=== PATIENT | female | born 1960 | race Two or more races ===

== ENCOUNTER → 2019-05-27 | Outpatient (CLI) | payer SELFPAY ==
[~2019-05-27] MED LIST: ASPI81CH; ATOR20 PO; BENADRYL25 MG PO; CALCAVITDA PO; CLOBET30L TOP; CYCL10 PO; HYDACE5 PO; IBUHYD PO; IBUP600 PO; IBUP800 PO; LISI5 PO; LOSA50 PO; METF500 PO; MULVITMIND PO; NAPR500 PO; NITR100CA PO; ONDA4 PO; OXYACE5T PO; PROM25 PO; Prednisone20 MG PO; RXHYDMOR2 PO; Zithromax250 MG PO
== END | disposition home or self-care (01) ==
LOC: LAB UCHC 16:00 → LAB SHORT 16:00
DX: R82.998 Other abnormal findings in urine (principal)
CPT/HCPCS: 87086

== ENCOUNTER 2020-12-07 15:03 | Inpatient (IN) | payer SELFPAY ==
[~2020-12-07] VITALS: Ht 157.5 cm; Wt 88.2 kg
[2020-12-07] MEDS ORDERED: ATOR20 PO (15:43)
[2020-12-07 17:28] LABS: Alanine Aminotransfer (ALT/SGP 32 U/L (12-78); Albumin, Blood 3.1 g/dL (3.4-5.0); Albumin/Globulin Ratio 0.7 (0.8-1.8); Alk Phos 81 U/L (50-136); Anion Gap 6 mmol/L (6-16); Aspartate Aminotrans (AST/SGOT 44 U/L (12-37); Bilirubin, Total 0.4 mg/dL (0.1-1.0); Blood Urea Nitrogen 9 mg/dL (8-24); Bun/Creatinine Ratio 12.8 (12.0-20.0); CO2, Blood 26 mmol/L (21-32); Calcium, Blood 7.9 mg/dL (8.5-10.1); Chloride, Blood 102 mmol/L (98-108); Globulin, Blood 4.2 g/dL (2.2-4.0); Glomerular Filtration Rate >60 (60-); Glucose, Blood 120 mg/dL (70-99); Potassium, Blood 3.5 mmol/L (3.5-5.5); Sodium, Blood 134 mmol/L (136-145); Total Protein, Blood 7.3 g/dL (6.4-8.2)
[2020-12-07 17:47] LABS: BASOPHILS PERCENT AUTO 0 % (0-2); EOSINOPHILS PERCENT AUTO 0 % (0-6); Hematocrit 37.8 % (33.0-51.0); Hemoglobin 12.6 g/dL (11.5-16.0); IMMATURE GRAN ABSOLUTE AUTO 0.01 K/mm3 (0.00-0.10); IMMATURE GRAN PERCENT AUTO 0 % (0-1); LYMPHOCYTES ABSOLUTE AUTO 0.63 K/mm3 (0.84-5.20); LYMPHOCYTES PERCENT AUTO 23 % (21-46); MONOCYTES ABSOLUTE AUTO 0.18 K/mm3 (0.16-1.47); MONOCYTES PERCENT AUTO 7 % (4-13); Mean Corpuscular HGB 26.5 pg (26.0-34.0); Mean Corpuscular HGB Conc 33.3 g/dL (31.5-36.5); Mean Corpuscular Volume 79 fL (80-100); Mean Platelet Volume 10.8 fL (9.1-12.4); NEUTROPHILS ABSOLUTE AUTO 1.89 K/mm3 (1.96-9.15); NEUTROPHILS PERCENT AUTO 70 % (41-73); Platelet Count 111 K/mm3 (150-400); RDW Coefficient Variation 13.2 % (11.7-14.2); RDW Standard Deviation 38.1 fL (35.1-46.3); Red Blood Cell Count 4.76 M/mm3 (3.80-5.20); White Blood Cell Count 2.71 K/mm3 (4.00-11.30)
[2020-12-07] MEDS ORDERED: ATOR40TA PO (18:23)
--- NOTE | 2020-12-08 04:00 | NUR ---
SHIFT SUMMARY A/OX4, IND IN ROOM. CURRENTLY ON 2.5L WITH SATS GREATER THAN 92. FIRST DOSE OF REMDESIVIR GIVEN. C/O MILD MUSCLE ACHES AND INTERMITTENT LOOSE STOOLS. TELE SR IN THE 60S. VSS, NO ACUTE CHANGES AT THIS TIME. BED IN LOWEST POSITION WITH CALL LIGHT IN REACH. WILL CONTINUE TO MONITOR AND REPORT TO ONCOMING RN.
[2020-12-08 05:00] LABS: BASOPHILS ABSOLUTE AUTO 0.01 K/mm3 (0.00-0.23); BASOPHILS PERCENT AUTO 1 % (0-2); EOSINOPHILS PERCENT AUTO 0 % (0-6); Hematocrit 45.4 % (33.0-51.0); Hemoglobin 14.7 g/dL (11.5-16.0); IMMATURE GRAN ABSOLUTE AUTO 0.01 K/mm3 (0.00-0.10); IMMATURE GRAN PERCENT AUTO 1 % (0-1); LYMPHOCYTES ABSOLUTE AUTO 0.74 K/mm3 (0.84-5.20); LYMPHOCYTES PERCENT AUTO 38 % (21-46); MONOCYTES PERCENT AUTO 5 % (4-13); Mean Corpuscular HGB 26.4 pg (26.0-34.0); Mean Corpuscular HGB Conc 32.4 g/dL (31.5-36.5); Mean Corpuscular Volume 82 fL (80-100); Mean Platelet Volume 10.6 fL (9.1-12.4); NEUTROPHILS ABSOLUTE AUTO 1.11 K/mm3 (1.96-9.15); NEUTROPHILS PERCENT AUTO 56 % (41-73); Platelet Count 121 K/mm3 (150-400); RDW Coefficient Variation 13.2 % (11.7-14.2); RDW Standard Deviation 39.9 fL (35.1-46.3); Red Blood Cell Count 5.56 M/mm3 (3.80-5.20); White Blood Cell Count 1.97 K/mm3 (4.00-11.30)
[2020-12-08 05:18] LABS: Anion Gap 8 mmol/L (6-16); Blood Urea Nitrogen 13 mg/dL (8-24); Bun/Creatinine Ratio 15.3 (12.0-20.0); CO2, Blood 28 mmol/L (21-32); Calcium, Blood 8.4 mg/dL (8.5-10.1); Chloride, Blood 102 mmol/L (98-108); Creatinine, Blood 0.85 mg/dL (0.40-1.00); Glomerular Filtration Rate >60 (60-); Glucose, Blood 173 mg/dL (70-99); Potassium, Blood 3.5 mmol/L (3.5-5.5); Sodium, Blood 138 mmol/L (136-145)
--- NOTE | 2020-12-08 17:04 | NUR ---
SHIFT SUMMARY PT IS AOX4. PT DENIES PAIN, N/V, SOB. PT STATES SHE FEELS MUCH BETTER THIS SHIFT AND IS HOPING TO RETURN HOME SOON. PT IS INDEPENDENT IN ROOM. PT TELE IS NSR IN THE 60S. PT HAS A GOOD APPETITE. NO PROCEDURES DONE THIS SHIFT. PT DID NOT HAVE VISITORS PER PROTOCOL. PT IS IN BED, LOW POSITION, CALL LIGHT IN REACH.
--- NOTE | 2020-12-09 06:05 | NUR ---
SHIFT SUMMARY S/P COVID19, A/O X4, VSS, PT REPORTS MILD SOB BUT ALSO THAT IT HAS IMPROVED SIGNIFICANTLY, PT STILL REQUIRING 2L VS NC IN WHICH SHE IS RA @ BASELINE, INDEPENDENT IN ROOM. NO ACUTE EVENTS THIS SHIFT. CALL LIGHT IN REACH, WILL CTM AND REPORT TO DAY RN.
[2020-12-09 07:47] LABS: Hematocrit 41.5 % (33.0-51.0); Hemoglobin 13.7 g/dL (11.5-16.0); Mean Corpuscular HGB 26.4 pg (26.0-34.0); Mean Corpuscular Volume 80 fL (80-100); Mean Platelet Volume 11.2 fL (9.1-12.4); Platelet Count 159 K/mm3 (150-400); RDW Coefficient Variation 13.3 % (11.7-14.2); Red Blood Cell Count 5.18 M/mm3 (3.80-5.20); White Blood Cell Count 6.74 K/mm3 (4.00-11.30)
[2020-12-09 07:59] LABS: Anion Gap 7 mmol/L (6-16); Blood Urea Nitrogen 20 mg/dL (8-24); Bun/Creatinine Ratio 27.2 (12.0-20.0); CO2, Blood 27 mmol/L (21-32); Calcium, Blood 8.6 mg/dL (8.5-10.1); Chloride, Blood 103 mmol/L (98-108); Creatinine, Blood 0.74 mg/dL (0.40-1.00); Glomerular Filtration Rate >60 (60-); Glucose, Blood 153 mg/dL (70-99); Potassium, Blood 4.1 mmol/L (3.5-5.5); Sodium, Blood 137 mmol/L (136-145)
--- NOTE | 2020-12-09 18:39 | NUR ---
SHIFT SUMMARY: NO ACUTE EVENTS TO REPORT THIS SHIFT. PT COVID POSITIVE; PT REPORTS SOB, IMPROVING; O2 @ 2L - ROOM AIR AT HOME. IV STEROIDS & REMDESIVIR CONTINUING. WCTM.
[2020-12-10 05:10] LABS: Hematocrit 41.8 % (33.0-51.0); Hemoglobin 13.7 g/dL (11.5-16.0); Mean Corpuscular HGB 26.4 pg (26.0-34.0); Mean Corpuscular HGB Conc 32.8 g/dL (31.5-36.5); Mean Corpuscular Volume 81 fL (80-100); Mean Platelet Volume 10.5 fL (9.1-12.4); Platelet Count 185 K/mm3 (150-400); RDW Coefficient Variation 13.2 % (11.7-14.2); RDW Standard Deviation 38.7 fL (35.1-46.3); Red Blood Cell Count 5.19 M/mm3 (3.80-5.20); White Blood Cell Count 5.36 K/mm3 (4.00-11.30)
[2020-12-10 05:36] LABS: Alanine Aminotransfer (ALT/SGP 32 U/L (12-78); Albumin/Globulin Ratio 0.7 (0.8-1.8); Alk Phos 83 U/L (50-136); Anion Gap 7 mmol/L (6-16); Aspartate Aminotrans (AST/SGOT 31 U/L (12-37); Bilirubin, Total 0.4 mg/dL (0.1-1.0); Blood Urea Nitrogen 18 mg/dL (8-24); Bun/Creatinine Ratio 30.2 (12.0-20.0); CO2, Blood 29 mmol/L (21-32); Calcium, Blood 8.6 mg/dL (8.5-10.1); Chloride, Blood 103 mmol/L (98-108); Globulin, Blood 4.2 g/dL (2.2-4.0); Glomerular Filtration Rate >60 (60-); Glucose, Blood 136 mg/dL (70-99); Potassium, Blood 3.8 mmol/L (3.5-5.5); Sodium, Blood 139 mmol/L (136-145); Total Protein, Blood 7.2 g/dL (6.4-8.2)
--- NOTE | 2020-12-10 05:54 | NUR ---
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 INDEPENDENT IN ROOM. DENIES PAIN, NAUSEA. PT'S OXYGEN NEEDS INCREASED FROM 2L TO 4L. PT HAD BEEN 88 TO 89% ON 2L O2. PT'S HOB RAISED AND INSTRUCTED TO TAKES STEADY SLOW DEEP BREATHES. PT COUGHS EACH TIME WITH TAKING DEEP BREATHES. CURRENTLY ON 4L O2 VIA NC SATTING IN THE LOW 90'S. DR. FLAHERTY MADE AWARE AND ORDERED CONTINUOUS PULSE OX. CALL LIGHT WITHIN, WILL CONTINUE TO MONITOR.
--- NOTE | 2020-12-10 19:11 | NUR ---
SHIFT SUMMARY: NO ACUTE EVENTS TO REPORT THIS SHIFT. PT A&O; CALM AND COOPERATIVE WITH CARE. O2 @ 4L; ROOM AIR AT HOME; PT ENCOURAGED TO LIE PRONE TO EASE WOB. NO C/O PAIN THIS SHIFT. STEROIDS & REMDESEVIR CONTINUING. WCTM.
--- NOTE | 2020-12-10 22:54 | NUR ---
INCREASE O2 NEEDS PT SUSTAINS AROUND 85% ON 4L O2 VIA NC. THIS RN INCREASED O2 TO 6 LITERS WHICH BROUGHT PT BACK UP TO 89 TO 90% PT EDUCATED TO LAY ON ON HER STOMACH-PRONE TO HELP HER BREATHE BETTER. CALL LIGHT WITHIN REACH, CONT PULSE [address] WILL CONTINUE TO MONITOR.
--- NOTE | 2020-12-11 04:28 | NUR ---
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 INCREASED FROM 4 TO 6L O2 OVERNIGHT. PT CURRENTLY SATTING AROUND 95% AND DESATS TO 89% TO 90% WITH AMBULATION. CONTINOUS PULSE OX IN PLACE. VITALS ARE STABLE. DENIES PAIN. SLEPT WELL TONIGHT. CALL LIGHT SUMAYA GAMBLE, WILL CONTINUE TO MONITOR.
[2020-12-11 05:02] LABS: Hematocrit 42.7 % (33.0-51.0); Hemoglobin 13.7 g/dL (11.5-16.0); Mean Corpuscular HGB 26.2 pg (26.0-34.0); Mean Corpuscular HGB Conc 32.1 g/dL (31.5-36.5); Mean Corpuscular Volume 82 fL (80-100); Mean Platelet Volume 11.4 fL (9.1-12.4); Platelet Count 208 K/mm3 (150-400); RDW Coefficient Variation 13.1 % (11.7-14.2); Red Blood Cell Count 5.22 M/mm3 (3.80-5.20); White Blood Cell Count 5.46 K/mm3 (4.00-11.30)
[2020-12-11 05:25] LABS: Alanine Aminotransfer (ALT/SGP 32 U/L (12-78); Albumin, Blood 2.9 g/dL (3.4-5.0); Albumin/Globulin Ratio 0.7 (0.8-1.8); Alk Phos 85 U/L (50-136); Anion Gap 5 mmol/L (6-16); Aspartate Aminotrans (AST/SGOT 30 U/L (12-37); Bilirubin, Total 0.5 mg/dL (0.1-1.0); Blood Urea Nitrogen 18 mg/dL (8-24); Bun/Creatinine Ratio 30.7 (12.0-20.0); CO2, Blood 30 mmol/L (21-32); Calcium, Blood 8.5 mg/dL (8.5-10.1); Chloride, Blood 101 mmol/L (98-108); Creatinine, Blood 0.59 mg/dL (0.40-1.00); Globulin, Blood 4.3 g/dL (2.2-4.0); Glomerular Filtration Rate >60 (60-); Glucose, Blood 130 mg/dL (70-99); Potassium, Blood 4.3 mmol/L (3.5-5.5); Sodium, Blood 136 mmol/L (136-145); Total Protein, Blood 7.2 g/dL (6.4-8.2)
--- NOTE | 2020-12-11 17:45 | NUR ---
RN SHIFT NOTE: PT HAS BEEN A/O X 3. SATS HAVE REMAINED ABOVE 95% EXCEPT WHEN UP TO RESTROOM. DESATS TO THE LOW 90'S. IND IN ROOM AT THIS TIME. DENIES N/V/P/SOB. REPORTS LOSS OF SMELL. COUGH HAS BEEN MINIMAL. NO ACUTE CHANGES THIS SHIFT.
--- NOTE | 2020-12-12 05:10 | NUR ---
PHYSICIAN CONTACT PT REPORTS 3/10 SUBSTERNAL CHEST PAIN THAT HAS BEEN ONGOING FOR THE LAST 3 DAYS. DISH WASHER PROVIDER NOTIFIED. NEW ORDERS FOR TROPONIN, TELE AND EKG. EKG COMPLETED, NSR AT 60. WILL CONTINUE TO MONITOR.
--- NOTE | 2020-12-12 06:43 | NUR ---
SHIFT SUMMARY A/OX3, CAN BE FORGETFUL AT TIMES. PT FOUND OUTSIDE ROOM IN HALLWAY SLEEP WALKING. PT REORIENTED TO ROOM. CURRENTLY ON 6L HIGH FLOW WITH SATS GREATER THAN 92. PLEASE SEE PREVIOUS NOTE REGARDING REPORT OF CHEST PAIN. WILL CONTINUE TO MONITOR AND REPORT TO ONCOMING RN.
[2020-12-12 06:54] LABS: Hematocrit 43.6 % (33.0-51.0); Hemoglobin 14.5 g/dL (11.5-16.0); Mean Corpuscular HGB 26.8 pg (26.0-34.0); Mean Corpuscular HGB Conc 33.3 g/dL (31.5-36.5); Mean Corpuscular Volume 80 fL (80-100); Mean Platelet Volume 10.5 fL (9.1-12.4); Platelet Count 251 K/mm3 (150-400); RDW Standard Deviation 37.5 fL (35.1-46.3); Red Blood Cell Count 5.42 M/mm3 (3.80-5.20); White Blood Cell Count 8.22 K/mm3 (4.00-11.30)
[2020-12-12 06:57] LABS: Alanine Aminotransfer (ALT/SGP 29 U/L (12-78); Albumin/Globulin Ratio 0.7 (0.8-1.8); Alk Phos 86 U/L (50-136); Anion Gap 6 mmol/L (6-16); Aspartate Aminotrans (AST/SGOT 30 U/L (12-37); Bilirubin, Total 0.5 mg/dL (0.1-1.0); Blood Urea Nitrogen 18 mg/dL (8-24); Bun/Creatinine Ratio 27.7 (12.0-20.0); CO2, Blood 29 mmol/L (21-32); Calcium, Blood 8.4 mg/dL (8.5-10.1); Chloride, Blood 102 mmol/L (98-108); Creatinine, Blood 0.65 mg/dL (0.40-1.00); Globulin, Blood 4.1 g/dL (2.2-4.0); Glomerular Filtration Rate >60 (60-); Glucose, Blood 99 mg/dL (70-99); Potassium, Blood 3.8 mmol/L (3.5-5.5); Sodium, Blood 137 mmol/L (136-145); Total Protein, Blood 7.1 g/dL (6.4-8.2)
[2020-12-12 07:11] LABS: C-REACTIVE PROTEIN, EXT RANGE 0.559 mg/dL (0.000-0.300)
--- NOTE | 2020-12-12 14:19 | NUR ---
no visit door closed prayed for pt.
--- NOTE | 2020-12-12 18:20 | NUR ---
SHIFT SUMMARY: PT A/O X 4. NO ACUTE CHANGES TODAY. CONTINUES TO DESAT IN THE HIGH 80'S WHEN UP TO RESTROOM. ON 6 LPM. NO C/O CP TODAY.
--- NOTE | 2020-12-13 04:38 | NUR ---
SHIFT SUMMARY A/OX4, PLEASANT AND COOPERATIVE WITH CARE. CONTINUES TO BE ON 6L VIA [place] NC WITH SATS GREATER THAN 92. DESATS TO HIGH 80S WITH EXERTION. PT ABLE TO PRONE T/O THE NIGHT WITH SATS INCREASING TO 97. PT SLEPT T/O THE NIGHT. VSS, NO ACUTE CHANGES AT THIS TIME. BED IN LOWEST POSITION WITH CALL LIGHT IN REACH. WILL CONTINUE TO MONITOR AND REPORT TO ONCOMING RN.
[2020-12-13 05:01] LABS: Hematocrit 42.6 % (33.0-51.0); Hemoglobin 14.1 g/dL (11.5-16.0); Mean Corpuscular HGB 26.6 pg (26.0-34.0); Mean Corpuscular HGB Conc 33.1 g/dL (31.5-36.5); Mean Corpuscular Volume 80 fL (80-100); Mean Platelet Volume 9.6 fL (9.1-12.4); Platelet Count 320 K/mm3 (150-400); RDW Coefficient Variation 12.9 % (11.7-14.2); RDW Standard Deviation 37.6 fL (35.1-46.3)
[2020-12-13 05:35] LABS: Anion Gap 5 mmol/L (6-16); Blood Urea Nitrogen 21 mg/dL (8-24); Bun/Creatinine Ratio 36.8 (12.0-20.0); CO2, Blood 28 mmol/L (21-32); Calcium, Blood 8.6 mg/dL (8.5-10.1); Chloride, Blood 103 mmol/L (98-108); Creatinine, Blood 0.57 mg/dL (0.40-1.00); Glomerular Filtration Rate >60 (60-); Glucose, Blood 132 mg/dL (70-99); Sodium, Blood 136 mmol/L (136-145)
[2020-12-13] MEDS ORDERED: DEXA6 PO (14:19)
[2020-12-13] MEDS ORDERED: ASPI325 PO (14:19)
[2020-12-13] MEDS ORDERED: Tessalon200 MG PO (14:20)
[2020-12-13 16:23] LABS: SARS-Cov-2 (COVID-19) PCR, MMC POSITIVE (NEGATIVE)
== END 2020-12-13 16:30 | disposition home or self-care (01) | DRG 177 ==
LOC: ER 15:03 → MEDS 19:27
PROVIDERS: Internal Medicine; Physician Assistant; ADMIT Family Medicine
PROC: 8E0ZXY6 Isolation (ICD-10-PCS; principal; 2020-12-07)
PROC: 3E0333Z Introduction of Anti-inflammatory into Peripheral Vein, Percutaneous Approach (ICD-10-PCS; 2020-12-07)
PROC: XW033E5 Introduction of Remdesivir Anti-infective into Peripheral Vein, Percutaneous Approach, New Technology Group 5 (ICD-10-PCS; 2020-12-07)
DX: U07.1 COVID-19 (principal); J12.82 Pneumonia due to coronavirus disease 2019; J96.01 Acute respiratory failure with hypoxia; R07.81 Pleurodynia; E78.5 Hyperlipidemia, unspecified; D69.59 Other secondary thrombocytopenia; E11.9 Type 2 diabetes mellitus without complications; I10 Essential (primary) hypertension; Z79.84 Long term (current) use of oral hypoglycemic drugs; Z79.899 Other long term (current) drug therapy
CPT/HCPCS: 36415; 71045; 80048; 80053; 82947; 83605; 84145; 85025; 85027; 85379; 85651; 86140; 87040; 93005; 93010; 94761; 94762; 96374; 99285-25; A9270; J1100; J1650; J1815; J7050; U0004

== ENCOUNTER 2022-01-01 20:40 | Emergency (ER) | payer SELFPAY ==
[~2022-01-01] VITALS: Ht 157.5 cm; Wt 72.6 kg
[~2022-01-01 20:40] MED LIST changes: +ASPI325 PO; +ATOR40TA PO; +DEXA6 PO; +Tessalon200 MG PO
== END 2022-01-01 22:06 | disposition home or self-care (01) ==
LOC: ER 20:40
DX: S50.851A Superficial foreign body of right forearm, initial encounter (principal); Z79.82 Long term (current) use of aspirin; Z79.899 Other long term (current) drug therapy; Z79.84 Long term (current) use of oral hypoglycemic drugs; W45.8XXA Other foreign body or object entering through skin, initial encounter
CPT/HCPCS: 10120; 90714; 96372; 99282-25

== ENCOUNTER 2024-02-26 20:38 | Emergency (ER) | payer OTHER ==
[~2024-02-26] VITALS: Ht 157.5 cm; Wt 81.7 kg
[2024-02-26 20:41] VITALS: BP 174/97
[2024-02-26] MEDS ORDERED: Amoxicillin/Clavulanate K 875 MG Tab PO ONE (21:20)
[2024-02-26] MEDS ORDERED: AMOCLA875 PO (22:16)
== END 2024-02-26 21:30 | disposition home or self-care (01) ==
LOC: ER 20:38
DX: S61.251A Open bite of left index finger without damage to nail, initial encounter (principal); E11.9 Type 2 diabetes mellitus without complications; Z79.84 Long term (current) use of oral hypoglycemic drugs; Z79.82 Long term (current) use of aspirin; Z79.899 Other long term (current) drug therapy; W54.0XXA Bitten by dog, initial encounter
CPT/HCPCS: 12001; 73130; 99283-25; A9270